=== PATIENT | male | born 1935 | race Caucasian/White ===

== ENCOUNTER 2019-08-20 14:57 | Inpatient (IN) | payer OTHER ==
[~2019-08-20] VITALS: Ht 172.7 cm; Wt 70.3 kg
[~2019-08-20 14:57] MED LIST: PROSCAR 5MG TABL5 MG PO
[2019-08-20 15:05] VITALS: BP 164/83
[2019-08-20 15:41] LABS: URINE BILIRUBIN NEGATIVE (Negative); URINE BLOOD TRACE (Negative); URINE CLARITY CLEAR; URINE COLOR YELLOW; URINE GLUCOSE-RANDOM* NEGATIVE (Negative); URINE KETONES NEGATIVE (Negative); URINE LEUKOCYTES-REFLEX TRACE (Negative); URINE NITRITE-REFLEX NEGATIVE (Negative); URINE PROTEIN (DIPSTICK) NEGATIVE (Negative); URINE SPECIFIC GRAVITY 1.015 (1.005-1.035)
[2019-08-20 15:48] LABS: ABSOLUTE NEUTROPHILS 5.2 thou/uL (1.4-8.2); BASOPHILS 0.5 % (0.0-2.0); HEMATOCRIT 45.1 % (42.0-52.0); HEMOGLOBIN 15.4 gm/dL (14.0-18.0); LYMPHOCYTES 16.7 % (24.0-44.0); MCH 32.5 pg (26.0-34.0); MCHC 34.1 g/dL (28.0-37.0); MCV 95.2 fL (80.0-100.0); PLATELET COUNT 246 thou/uL (150-400); POLYS 74.8 % (36.0-66.0); RBC 4.73 mil/uL (4.50-6.00)
[2019-08-20] MEDS ORDERED: PROBIOTIC1 EAC7 PO (15:51)
[2019-08-20 15:52] LABS: CALCIUM 8.7 mg/dL (8.5-10.1); CREATININE 0.9 mg/dL (0.7-1.3); POTASSIUM 3.9 mmol/L (3.5-5.1)
[2019-08-20] MEDS ORDERED: LORAZEPAM 0.50.5 MG PO (15:52)
[2019-08-20] MEDS ORDERED: MELATONIN3 M1 PO (15:52)
[2019-08-20] MEDS ORDERED: ASA81BEC PO (15:52)
[2019-08-20] MEDS ORDERED: TRAZODONE HCL50 MG PO (15:52)
[2019-08-20 15:57] LABS: ALBUMIN 3.6 g/dL (3.4-5.0); TOTAL BILIRUBIN 0.4 mg/dL (0.2-1.0); TOTAL PROTEIN 7.8 g/dL (6.4-8.2)
[2019-08-20 18:35] VITALS: BP 145/63
[2019-08-20 19:39] VITALS: BP 167/88
[2019-08-20 20:14] VITALS: BP 167/88
--- NOTE | 2019-08-20 23:13 | NUR ---
Arrived on [facility] floor in a Wheel chair accompanied by x1 staff from the ER @ 19:15 and transferred to bed 521B. Able to bear weight and step 2 steps from w/c to bed. VS 167/88 94 18 98.4 100% weight 156 pounds. Full code A&O x2 oriented to person and own birthday. Comes to the [facility] with glasses, x2 hearing aids, hearing aide batteries, clothes inventoried, diet regular. Patient has an enlarged prostate, is continent of bladder, ambulates to the toilet, has not had a bm while at our facility, and reports does not remember when he last had a bm. Ambulates with slow but steady gait with stand by assist x1. Refused a snack.
[2019-08-21 07:30] VITALS: BP 150/70
--- NOTE | 2019-08-21 18:13 | NUR ---
Alert and orientated X4. Denies SI/HI. Some confused speech. Gets lost frequently going to and from room to dining room. One episode of becoming anxious in midafternoon d/t doing same thing over and over. Steady, shuffling gait. Breath sounds clear t/o. Reg HR auscultated. Color pink with brisk capillary refill and palpable peripheral pulses. No edema noted. Independent with voiding. Active bowel sounds over soft, rounded abdomen. Unable to recall last BM. Compliant with meds, independent with eating. Currently in room.
[2019-08-21 19:00] VITALS: BP 156/64
--- NOTE | 2019-08-22 02:13 | NUR ---
Care assumed of patient at 1915: Patient sleeping in bed at start of shift. Patient easily aroused. Patient alert and oriented to person and place. Patient forgetful and confused. Patient presents with flat affect, depressed mood. Patient became tearful when asked about current date and situation. Patient states "I just don't know" and shakes his head side to side. Patient denied pain and discomfort. Patient avoiding eye contact when speaking with nurse. Turns his head to the side and looks at the wall. Patient declined HS snack. Took HS medication whole without difficulty. Patient continent of bladder. Ambulates with shuffled gait. Patient denies SI/HI/AH/VH. Denies anxiety and depression despite appearing depressed. No delusional or paranoia behaviors observed. Patient has been resting quietly in bed most of the shift thus far.
[2019-08-22 07:36] VITALS: BP 113/69
--- NOTE | 2019-08-22 08:55 | NUR ---
DAUGHTER, MS. ISABEL ASTUDILLO, CALLED AND INQUIRED ABOUT THE PT. SHE WAS PROVIDED WITH GENERAL INFORMATION ON THE PT. SHE STATED SHE WILL CHECK UP ON HIM FROM TIME TO TIME. CALL ENDED.
--- NOTE | 2019-08-22 10:21 | NUR ---
Assumed care at 0700. Out for breakfast in dayroom. Denied complaints of pain and issues. Fed himself without difficulty. Oriented to name and year. Is wearing his hearing aids-says batteries are good. Has no questions.
--- NOTE | 2019-08-22 15:55 | NUR ---
Patient became tearful when asked wht brought him to the hospital. He asked why do you keep asking me that question? Question was asked only once by this nurse. After lunch patient returned to his room, secluded himself to his room. He denies hallucinations, SI/HI. Affect is sad with depressed mood.
[2019-08-22 19:18] VITALS: BP 150/77
--- NOTE | 2019-08-22 21:28 | NUR ---
Care assumed of patient at 1915: Patient laying in bed at start of shift. Easily aroused, does not appear to be sleeping. Alert and oriented x4 with some confusion and forgetfulness observed. Patient was able to state that he is in the hospital to get help for his dementia. Is able to state that he has trouble with his memory at times. Denies SI/HI/AH/VH. Denies anxiety and depression. Patient resistant to nursing assessment intitially and became tearful. Education provided on importance of nursing assessments. Patient stated he understood that staff was doing their job. Patient denied pain and discomfort. Patient presents with flat affect, depressed mood. Patient took HS medication whole without difficulty. Patient declined HS snack. Patient has remained withdrawn to his room thus far this shift. Patient resting quietly in bed at this time.
[2019-08-23 07:38] VITALS: BP 148/75
--- NOTE | 2019-08-23 08:27 | EKG ---
[facility] [place] [address] ELECTROCARDIOGRAM REPORT Name: RICKI MOSS Room #: [facility] ADM IN M.R.#: [id number] Admission: 08/20/19 Attend Phys: Darren Tyson DO Discharge: Date of : 31 Report #: [id number] THIS REPORT FOR: cc: Kitty Bustillo MD, Michelle R. MD Lundgren,Heath Chin MD [facility] ~ THIS REPORT FOR: //name// [facility] ED Test Date: 2019-08-20 Test Time: 15:53:09 Pat Name: RICKI MOSS Department: Room: [facility] Gender: M Medical Accounting Clerk: SUSAN : 1935 Requested By: Pratik Jaquez Order Number: [id number] MD: Heath Lux Measurements Intervals [place] Rate: 77 P: 11 MT: 205 QRS: 33 QRSD: 93 T: 84 QT: 380 QTc: 431 Interpretive Statements Sinus rhythm Normal tracing No previous ECG available for comparison Electronically Signed On 08-23-2019 8:25:12 CDT by Heath Lux [email or web address] <ELECTRONICALLY SIGNED> By: Heath Lux MD, [facility] 08/23/19 0825 1553 1553 Haeth Lux MD, [facility] /EPI
--- NOTE | 2019-08-23 08:27 | EKG ---
[facility] [place] [address] ELECTROCARDIOGRAM REPORT Name: RICKI MOSS Room #: [facility] [place] ADM IN M.R.#: [id number] Admission: 08/20/19 Attend Phys: Darren Tyson DO Discharge: Date of : 31 Report #: [id number] THIS REPORT FOR: cc: Kitty Bustillo MD, Michelle R. MD Lundgren,Heath Chin MD [facility] ~ THIS REPORT FOR: //name// [facility] ED Test Date: 2019-08-20 Test Time: 15:25:42 Pat Name: RICKI MOSS Department: Room: [facility] Gender: M Canteen Manager: SUSAN : 1935 Requested By: Pratik Jaquez Order Number: [id number] MD: Heath Lux Measurements Intervals [place] Rate: 87 P: OR: QRS: -7 QRSD: 104 T: 31 QT: 355 QTc: 427 Interpretive Statements Atrial fibrillation Inferior infarct, old Baseline wander in lead(s) V3 No previous ECG available for comparison Electronically Signed On 08-23-2019 8:25:01 CDT by Heath Lux [email or web address] <ELECTRONICALLY SIGNED> By: Heath Lux MD, [facility] 08/23/19 0825 1525 1525 Heath Lux MD, [facility] /EPI
--- NOTE | 2019-08-23 13:25 | NUR ---
Assess due to high nutrition screening risk. Admit to [facility] with dementia. Visit with pt in room. States he had good lunch today and "ate the hamburger". Does not have any complaints about appetite and stated he is not sure how much he usually weighs. BMI healthy 23.6. Intake other meals 50-100%. Voiced no specific food preferences. Presents well nourished. Low nutrition risk
--- NOTE | 2019-08-23 19:21 | NUR ---
Care of patient assumed at 1915. Patient is laying in bed. Pleasant and cooperative with assessment. Reports that he know he has short term memory issues, and that he tends to repeat himself several times before remembering that he has said that before. A/O x 4. Denies pain. Denies depression. Dneies anxiety. HS, LS, BS all wNL. Per shift report, patient has been laying in bed all day and will only wiggle his toes when told he needs to be active to stay healthy. This nurse spoke with patient about exercises to maintain muscle tone. After assessment, patient ambulates in the major per self. Compliant with HS meds. Sleeping shortly after.
[2019-08-23 19:33] VITALS: BP 144/73
--- NOTE | 2019-08-23 23:31 | H ---
[facility] [place] [address] HISTORY AND PHYSICAL Name: RICKI MOSS Room #: 521B-B ADM IN M.R.#: [id number] Admission: 08/20/19 Attend Phys: Darren Tyson DO Discharge: Date of : 31 Report #: [id number] THIS REPORT FOR: cc: Kitty Bustillo MD,Darren Joseph MD, DO ~ CC: Darren Bustillo DATE OF SERVICE: 08/21/2019 INPATIENT PSYCHIATRIC EVALUATION ATTENDING PHYSICIAN: Darren Tyson D.O. VISCOSE CELLAR WORKER: Shawanda Aguilar M.D. REASON FOR ADMISSION: Visual hallucinations. CHIEF COMPLAINT: "having rewind". HISTORY OF PRESENT ILLNESS: This is an 83-year-old male living with his daughter, Tess, as well as a grandchild and great grandchildren. The patient reports a 6-week history of problems relating to cognition, but seeing multiple images, recurrent. His description of visual hallucinations is somewhat atypical. He denied auditory or tactile hallucinations. Over the last several weeks, the patient has been emotionally labile, difficulty sleeping and caring for himself, 6 weeks ago when things began and was evaluated. He had imaging there including CT, MRI/MRA. Around 07/22/2019 at [facility], he had a lumbar puncture. Verbally this was reported as grossly negative. We only have the head scans and noninvasive radiology from the neuro, actually do not have the results from the LP. Apparently saw a neurologist, which was unable to identify a cause, I am not sure if this is an inpatient or outpatient. He continues to have difficulty sleeping and will wake about every 2 hours during the night. Several weeks back, he began having The patient is having visual hallucinations with resultant him scared to be alone including using the bathroom and during other routine hygiene activities. Daughter states that the patient has not taken a shower in about a month and has not been brushing his teeth as he should. He was evaluated by PCP 3 days ago who recommended psychiatric evaluation. They attempted to arrange outpatient evaluation but were unsuccessful. He denied auditory hallucination. Denied SI or HI, memory difficulty. [facility] [address] [place] [address] HISTORY AND PHYSICAL Name: RICKI MOSS Room #: 521B-B ADM IN M.R.#: [id number] Admission: 08/20/19 Attend Phys: Darren Tyson DO Discharge: Date of : 31 Report #: [id number] PAST MEDICAL HISTORY: Enlarged prostate. HOME MEDICATIONS: Finasteride, bacillus, melatonin, aspirin, trazodone, 1 mg of lorazepam at bedtime. ALLERGIES: No known allergies. SOCIAL HISTORY: Denied alcohol, smoking or recreational drug use. REVIEW OF SYSTEMS: From the ER, CONSTITUTIONAL: Denies fever, chills, malaise, unexplained weight change. EYES: Denies eye pain, visual change or discharge. HENT: Denies hearing changes, ear drainage, ear infections, ear pain, neck pain or neck stiffness. RESPIRATORY: Denies cough, shortness of breath, hemoptysis, respiratory distress. CARDIOVASCULAR: Denies chest pain, chest pain with exertion or edema. GASTROINTESTINAL: Denies abdominal pain, nausea, vomiting or diarrhea. GENITOURINARY: Denies burning, frequency or dysuria. MUSCULOSKELETAL: Denies back pain, joint pain, muscle weakness or myalgias. SKIN: Denies rash. NEUROLOGIC: Denies weakness, headache or loss of consciousness. PSYCHIATRIC: Denies auditory hallucinations or SI or HI. Otherwise, 10-point review of systems negative. Weight 72.58 kg, BMI 23.7. LABORATORY DATA: Additional information, laboratories in the ER, hematology. CBC: White count 7.0, H and H 15.0 and 45.1, platelet count 246. Coags were canceled. Chemistry: Sodium 136, potassium 3.9, chloride 102, bicarbonate 29, anion gap 5, BUN 12, creatinine 0.9, estimated GFR 80, glucose 103, calcium 8.7, total bilirubin 0.4, AST 13, ALT 12, alkaline phosphatase 72, total protein 7.8, albumin 3.6. Vitamin B12 1349, folate pending. TSH 1.190. We will go ahead and add syphilis antibody and vitamin D into those labs. Urinalysis showed trace blood. Neuro imaging reviewed from [facility]. MRA showed normal variations to the intracranial vasculature with no evidence of aneurysm, flow limiting stenosis or large vessel cutoff. MRI of the brain showed no evidence of acute intracranial hemorrhage, infarct, mass effect. Duplex carotid bilateral ultrasound showed evidence of atherosclerotic disease without hemodynamically significant stenosis. Head CT done on 07/08/2019 showed no acute intracranial abnormality. Chest x-ray done back on July 07 showed a medial right basilar airspace opacity, possible atelectasis. Echocardiogram was done, which showed left ventricular EF 60-65%, structurally normal valves. There was grade 1 diastolic dysfunction noted. Tricuspid valve, pulmonary artery pressure, cannot be obtained due to inadequate tricuspid regurgitation jet envelope. No [facility] [address] [place] [address] HISTORY AND PHYSICAL Name: RICKI MOSS Room #: 521B-B ADM IN M.Bhupendra.#: [id number] Admission: 08/20/19 Attend Phys: Darren Tyson, DO Discharge: Date of : 31 Report #: [id number] pericardial effusion. I would not review all the routine blood work as it has been grossly normal and EKG back on July 11 showed QTC 432, normal sinus rhythm and old inferior infarct. Diagnosis from [facility] was confusion with nonfocal neuro exam, hematuria, hypertension. . PHYSICAL EXAMINATION: VITAL SIGNS: Today, temperature 36.5, pulse 101, respirations 17, BP 150/70, O2 sat 99%. MUSCULOSKELETAL: He is ambulatory. He has a very rigid narrow gait suggestive of parkinsonism. MENTAL STATUS EXAMINATION: This is a well-developed, age appearing male. Attention limited. Concentration limited. Speech is normal rate. Thought process is linear and goal directed. Thought content, relative poverty of thought. No psychomotor agitation, no sudden retardation. Denied SI or HI. Denied auditory, visual, or tactile hallucinations. Memory grossly impaired. All details provided on below SLUMS. Insight limited. Judgment limited. Fund of knowledge below average. [facility] Mental Status exam was performed. The patient scored 11/30. He was 0/3 on the money management question, 0/3 on verbal fluency, 2/5 on 5-item recall, 0/2 on reverse digit span, he only did correctly 2 digits not 3 or 4, 0/4 on clock drawing, 2/2 on visual spatial recognition and 4/8 on the cued memory. I spoke with his daughter at some length, it sounds like this has been marked event for the last 6 weeks or so. The patient is adopted, so do not have a good family history. EDUCATIONAL HISTORY: He has a bachelor's degree in engineering, worked in municipal career. He has 2 adult daughters. His in 1998. No alcohol, tobacco, or recreational drug use history. FORMULATION: An 83-year-old male with 6-week history of disrupted sleep, labile mood, visual hallucinations. DIAGNOSIS: At this time unspecified psychosis. Parkinson symptoms, cannot exclude idiopathic Parkinson's disease, rule out Lewy body dementia with parkinsonian features. PLAN: Evaluate, stabilize, obtain collateral. Started him on Seroquel XR 150 mg last night. We will increase that to 200 mg XR. He is on lactobacillus daily, finasteride 5 mg daily, B12 1000 mcg daily, aspirin daily, lorazepam 0.5 mg p.r.n. at 2200, melatonin 5 mg at bedtime. Given his degree of dementia, we will go ahead and discontinue the lorazepam, add in orders for vitamin D level, syphilis antibody. [address] [address] HISTORY AND PHYSICAL Name: RICKI MOSS Room #: 521B-B ADM IN M.R.#: [id number] Admission: 08/20/19 Attend Phys: Darren Tyson, Discharge: Date of : 31 Report #: [id number] Time spent on interview, review of records, coordination of care and SLUMS exam was well over 60 minutes. STRENGTHS: He is insured, supportive family. WEAKNESSES: Marked cognitive decline, concern for Lewy body dementia. <ELECTRONICALLY SIGNED> By: Darren Tyson DO 08/23/19 2331 1503 1544 Darren Tyson, /nt
[2019-08-24 07:41] VITALS: BP 161/78
--- NOTE | 2019-08-24 16:00 | NUR ---
Up ambulating with slow, steady gait. Alert and orientated X4. Denies SI/HI. Having difficulty hearing, batteries changed in hearing aides. Needs redirection getting to/from room. Calm and compliant with meds. Breath sounds clear t/o. Reg HR auscultated. Color pink with brisk capillary refill and palpable peripheral pulses. Independent with voiding. Active bowel sounds over soft, rounded abdomen. Sits in day room with peers. No s/o distress.
[2019-08-24 19:33] VITALS: BP 139/74
[2019-08-24 20:07] LABS: SYPHILIS AB Non Reactive (Non Reactive)
--- NOTE | 2019-08-24 20:12 | NUR ---
ASSUMED CARE ON 08/24/19 @ 19:15, IN BED EYES OPEN, RESPONDS WHEN SPOKEN TO AND COOPERATED WITH ASSESSMENT. HRRR NOTED, LUNGS CTA, ABD N BOWEL SOUNDS, DENIES HAVING A BM TODAY, DENIES HAVING A BM SINCE HE CAME TO THE HOSPITAL. DENIES HAVING A SHOWER SINCE ADMISSION. DENIES SI, HI, AH, VH. A&OX4.
[2019-08-25 02:31] VITALS: BP 139/74
[2019-08-25 07:40] VITALS: BP 119/78
--- NOTE | 2019-08-25 13:34 | H ---
[facility] [place] [address] HISTORY AND PHYSICAL Name: RICKI MOSS Room #: 521B-B ADM IN M.R.#: [id number] Admission: 08/20/19 Attend Phys: Darren Tyson DO Discharge: Date of : 31 Report #: [id number] THIS REPORT FOR: cc: Kitty Bustillo MD,Darren Joseph MD, DO ~ CC: Darren Bustillo DATE OF SERVICE: 08/20/2019 CONTINUATION The patient is having visual hallucinations with resultant him scared to be alone including using the bathroom and during other routine hygiene activities. Daughter states that the patient has not taken a shower in about a month and has not been brushing his teeth as he should. He was evaluated by PCP 3 days ago who recommended psychiatric evaluation. They attempted to arrange outpatient evaluation but were unsuccessful. He denied auditory hallucination. Denied SI or HI, memory difficulty. PAST MEDICAL HISTORY: Enlarged prostate. HOME MEDICATIONS: Finasteride, bacillus, melatonin, aspirin, trazodone, 1 mg of lorazepam at bedtime. ALLERGIES: No known allergies. SOCIAL HISTORY: Denied alcohol or recreational drug use. REVIEW OF SYSTEMS: From the ER, CONSTITUTIONAL: Denies fever, chills, malaise, unexplained weight change. EYES: Denies eye pain, visual change or discharge. HENT: Denies hearing changes, ear drainage, ear infections, ear pain, neck pain or neck stiffness. RESPIRATORY: Denies cough, shortness of breath, hemoptysis, respiratory distress. CARDIOVASCULAR: Denies chest pain, chest pain with exertion or edema. GASTROINTESTINAL: Denies abdominal pain, nausea, vomiting or diarrhea. GENITOURINARY: Denies burning, frequency or dysuria. MUSCULOSKELETAL: Denies back pain, joint pain, muscle weakness or myalgias. SKIN: Denies rash. NEUROLOGIC: Denies weakness, headache or loss of consciousness. PSYCHIATRIC: Denies auditory hallucinations or SI or HI. Otherwise, 10-point review of systems negative. [facility] [address] [place] [address] HISTORY AND PHYSICAL Name: RICKI MOSS Room #: 521B-B ADM IN M.R.#: [id number] Admission: 08/20/19 Attend Phys: Darren Tyson DO Discharge: Date of : 33 Report #: [id number] Weight 72.58 kg, BMI 23.7. LABORATORY DATA: Additional information, laboratories in the ER, hematology. CBC: White count 7.0, H and H 15.0 and 45.1, platelet count 246. Coags were canceled. Chemistry: Sodium 136, potassium 3.9, chloride 102, bicarbonate 29, anion gap 5, BUN 12, creatinine 0.9, estimated GFR 80, glucose 103, calcium 8.7, total bilirubin 0.4, AST 13, ALT 12, alkaline phosphatase 72, total protein 7.8, albumin 3.6. Vitamin B12 1349, folate pending. TSH 1.190. We will go ahead and add syphilis antibody and vitamin D into those labs. Urinalysis showed trace blood. Neuro imaging reviewed from [facility]. MRA showed normal variations to the intracranial vasculature with no evidence of aneurysm, flow limiting stenosis or large vessel cutoff. MRI of the brain showed no evidence of acute intracranial hemorrhage, infarct, mass effect. Duplex carotid bilateral ultrasound showed evidence of atherosclerotic disease without hemodynamically significant stenosis. Head CT done on 07/08/2019 showed no acute intracranial abnormality. Chest x-ray done back on July 07 showed a medial right basilar airspace opacity, possible atelectasis. Echocardiogram was done, which showed left ventricular EF 60-65%, structurally normal valves. There was grade 1 diastolic dysfunction noted. Tricuspid valve, pulmonary artery pressure, cannot be obtained due to inadequate tricuspid regurgitation jet envelope. No pericardial effusion. I would not review all the routine blood work as it has been grossly normal and EKG back on July 11 showed , QTC 432, normal sinus rhythm and old inferior infarct. Diagnosis from [facility] was confusion with nonfocal neuro exam, hematuria, hypertension, MD as well as the hospitalist involved which looks like. PHYSICAL EXAMINATION: VITAL SIGNS: Today, temperature 36.5, pulse 101, respirations 17, BP 150/70, O2 sat 99%. MUSCULOSKELETAL: He is ambulatory. He has a very rigid narrow gait suggestive of parkinsonism. MENTAL STATUS EXAMINATION: This is a well-developed, age appearing male. Attention limited. Concentration limited. Speech is normal rate. Thought process is linear and goal directed. Thought content, relative poverty of thought. No psychomotor agitation, no sudden retardation. Denied SI or HI. Denied auditory, visual, or tactile hallucinations. Memory grossly impaired. All details provided 02/13 SLUMS. Insight limited. Judgment limited. Fund of knowledge below average. [facility] Mental Status exam was performed. The patient scored 11/30. He was 0/3 on the money management question, 0/3 on verbal fluency, 2/5 on 5-item recall, 0/2 on reverse digit span, he only did correctly 2 digits not 3 or 4, 0/4 on clock drawing, 2/2 on visual spatial recognition and 4/8 on the cued memory. I spoke with his daughter at some length, it sounds like this has been marked event for the last 6 weeks or so. The patient is adopted, so do not have a good family history. 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 He has 2 adult daughters. His in 1998. No alcohol, tobacco, or recreational drug use history. FORMULATION: An 83-year-old male with 6-week history of disrupted sleep, labile mood, visual hallucinations. DIAGNOSIS: At this time unspecified psychosis. Parkinson symptoms, cannot exclude idiopathic Parkinson's disease, rule out Lewy body dementia with parkinsonian features. PLAN: Evaluate, stabilize, obtain collateral. Started him on Seroquel XR 150 mg last night. We will increase that to 200 mg XR. He is on lactobacillus daily, finasteride 5 mg daily, B12 1000 mcg daily, aspirin daily, lorazepam 0.5 mg p.r.n. at 2200, melatonin 5 mg at bedtime. Given his degree of dementia, we will go ahead and discontinue the lorazepam, add in orders for vitamin D level, syphilis antibody. Time spent on interview, review of records, coordination of care and SLUMS exam was well over 60 minutes. STRENGTHS: He is insured, supportive family. WEAKNESSES: Marked cognitive decline, concern for Lewy body dementia. <ELECTRONICALLY SIGNED> By: Darren Tyson DO 08/25/19 1334 1522 1632 Darren Tyson DO /nt
--- NOTE | 2019-08-25 14:02 | NUR ---
SW set up a fmaily meeting for 2pm with Dr stauffer.
--- NOTE | 2019-08-25 14:47 | NUR ---
JADEN and Dr Tyson met for tele conference with pt's dghts. Dr tyson provided an update and discussed d/c plans. Family agrees that pt needs placement. Sw requested that they look into his finances and consider memory care [place]> JADEN provided names of soome communities to choose from in [place] and [place]. Family is willing to call and start the process. JADEN will send referrals.
--- NOTE | 2019-08-25 15:52 | NUR ---
Patient vague about visions yet denies visual hallucinations. Denies SI/HI/AH. Says he wants stool softener. On his own initiative he was walking in the halls and sitting in the dayroom watching TV. says his mood is OK. He was anticipating discharge today.
--- NOTE | 2019-08-25 16:38 | NUR ---
JADEN spke with pt's dght and it was decided that this pt will need Medicaid LTC with memory care. JADEN intiated the referral with [employer] for the [employer] application and will send referrals in the AM
[2019-08-25 20:55] VITALS: BP 112/60
--- NOTE | 2019-08-25 23:56 | NUR ---
Assumed care on 08/25/19 @ 1915, lying in bed, awake, responds to voice and A&O x 2 to person and time. Thinks is going home tomorrow, denies pain, denies anxiety and depression. denies SI/HI/AH and VH. Reports that he is learning that the medicine helps chcf and that he is learning to not let his "Buttons get triggered", and that "I can prevent getting agrivated that it happened". Denies having a BM today, agreed to drink a glass of prune juice. Patient has no stool softener ordered at this time, and would like to have a stool softener. Cooperated with assessment, HRRR, Lungs CTA bilat, ABD Normoactive bowel sounds noted. In bed at this writing, eyes closed, respirations even and unlabored. Bed in low position with bed alarm set. Will continue to monitor q 12 minutes for patient safety.
[2019-08-26 02:21] VITALS: BP 112/60
[2019-08-26 07:15] VITALS: BP 134/78
--- NOTE | 2019-08-26 12:00 | NUR ---
RT Progress Note- Steven's participation was very minimal for much of this review period, though he is now present in the milieu for much of the day as of the last 2 days. He expresses a positive outlook to his situation and explains new coping skills he has developed. He has now participated in each group he is encouraged to attend.
--- NOTE | 2019-08-26 12:14 | NUR ---
JADEN sent referrals for memory care,LTC and with medicaid pending to [facility] , [facility].
--- NOTE | 2019-08-26 12:29 | NUR ---
SW spoke with pt's dght Serge Staples and she stated that her sister Jeannette is unemployed and lives in the pt's home and his income pays for everything. They want to stop the medicaid application and seek alternate fundign for LTC. SW will see if this pt has any skillable ctriteria for SNF at d/c.
--- NOTE | 2019-08-26 15:52 | NUR ---
Juan Manuel met with pt and Dr stauffer and went over the results of the neuropsych testing. Pt would like to go home , and family will provide 24 hour supevision. JUAN MANUEL then called and spoke with Jeannette, and it was discussed that for the next few months pt would be at home and then they will sell the home and pt can have PD or go to adult day care for extra socialization. Juan Manuel tried to call Serge Staples but it rang with no VM. Pt was denied at [facility] for now. JUAN MANUEL then spoke with Serge Staples and encouraged [facility] services for support to age in place. JUAN MANUEL provided family with the phone number and what kind of case mangement for this pt. It can be a combination of adult day care and [facility], nursing care.
--- NOTE | 2019-08-26 16:09 | NUR ---
Up ambulating with slow, shuffling, steady gait. Alert and orientated X3. Compliant with meds. Participating in groups today. Denies SI/HI. Breath sounds clear t/o. Reg HR auscultated. Color pink with brisk capillary refill and palpable peripheral pulses. Independent with voiding. Active bowel sounds over soft, rounded abdomen. Senna/Docusate started d/t LBM 08/23.
[2019-08-26 19:30] VITALS: BP 134/70
[2019-08-26 20:00] VITALS: BP 134/70
--- NOTE | 2019-08-26 23:42 | NUR ---
Assumed care of patient this pm shift. Patient lying in bed at start of shift. Patient appears to be in good spirits. Patient is med adherent. Patient takes medications whole with water. Patient alert and oriented to self, place, and time. Patient denies pain. Patient denies hi/si. Patient calm and cooperative. Patients assessment shows clear breath sounds, active bowel sounds, and s1 s2 heard with auscultation. Patient has a normal affect. We will continue to monitor per hospital protocol.
[2019-08-27 08:35] VITALS: BP 127/76
--- NOTE | 2019-08-27 10:29 | NUR ---
PATIENT CARE ASSUMED AT 0700 - PATIENT CALM AND QUIET. PATIENT EXPLAINED VERY HARD OF HEARING. ASSISTED WITH BATTERY CHANGE. PATIENT STATED MEMORY POOR - SO EXCUSE HIM IF HE FORGETS STAFF NAME. PATIENT COMPLIANT WITH MEDICATIONS. HAD GOOD SLEEP. - MENTIONED MIGHT BE RELOCATING TO NEW FACILITY BUT UNCERTAIN WHERE. STATED ACTUALLY LOOKING FORWARD TO CHANGE. PATIENT SPENT MOST OF FLUE CLEANER WATCHING TV. ASSESSED STATED NO PAIN DISCOMFORT, LUNGS CLEAR AND HEART STRONG AND STEADY. PATIENT AMBULATES INDEPENDENTLY. MONITOR FOR UNSTEADINESS AFTER MEDICATION PASSES.
[2019-08-27 19:42] VITALS: BP 132/69
[2019-08-27 22:00] VITALS: BP 132/69
--- NOTE | 2019-08-28 02:28 | NUR ---
Assumed care of patient this pm shift. Patient laying down in bedroom. Patient in good spirits, calm and cooperative. Patient denies pain. Patient denies hi/si. Patient alert and oriented x3. Patient med adherent, takes medications whole with thin fluids. Patients assessment shows clear breath sounds, active bowel sounds, and s1 s2 heard with auscultation. Patients affect appears normal. We will continue to monitor per hospital protocol.
[2019-08-28 08:20] VITALS: BP 152/81
[2019-08-28 09:18] VITALS: BP 192/81
--- NOTE | 2019-08-28 10:09 | NUR ---
1000 RESUMMED CARE FROM OVERNIGHT SHIFT THIS AM, PATIENT QUIET COOPERATIVE ORIENTED TIMES 4. PATIENTS ABDOMEN SEMI SOFT BOWEL SOUNDS PRESENT LUNGS CLEAR. PATIENT DENIES SI/HI/AH/VH AT PRESENT, PATIENT COOPERATIVE QUIET PATIENT DID PARTICIPATE IN GROUPS. PATIENT RECIEVED A SHOWER THIS MORNING WILL CONTINUE TO MONITOR FOR SAFETY AND BEHAVIORS.
[2019-08-28 20:13] VITALS: BP 128/67
--- NOTE | 2019-08-29 03:06 | NUR ---
08-28-19 CARE TRANSFERED 1914 PT SUPINE IN BED WITH EYES CLOSED. 1934 PT SUPINE IN BED RESTING WITH EYES CLOSED EASILY AROUSED TO VOICE. PT AAOX2, CALM AND COOPERATIVE THROUGHOUT NURSING ASSESSMENT. PT DOES NOT APPEAR TO BE IN ANY ACUTE EMOTIONAL DISTRESS AT PRESENT TIME. PT DENIES ANY PAIN OR SI/SH/HI/VAH. PT HAD ZERO DIFFCULTIES DURING MEDICATION ADMIN. DURING THIS TIME PT REPORTED HE HAS NOT HAD A BM, NOTED DURING NURSING ASSESSMENT PT WAS HYPOACTIVE IN ALL FOUR QUADS. PT MAR REVIEWED AND NOTED PT HAS A STOOL SOFTNER AVAILABLE AT 0900. ZERO ACUTE DISTRESS NOTED. WILL CONTINUE TO MONITOR PER [facility] PROTOCOL.
[2019-08-29 08:50] VITALS: BP 146/86
[2019-08-29] MEDS ORDERED: VITAMIN B-12500 MCG PO (11:29)
[2019-08-29] MEDS ORDERED: SENNA-TIME S T1 EACH PO (11:29)
[2019-08-29] MEDS ORDERED: MILK OF MA2400 MG/11 PO (11:29)
[2019-08-29] MEDS ORDERED: NAMENDA 5 MG TAB5 M1 PO ×3 (11:29)
[2019-08-29] MEDS ORDERED: ZOFRAN4 MG PO (11:29)
[2019-08-29] MEDS ORDERED: MAG-AL PLUS SUS30 ML PO (11:29)
[2019-08-29] MEDS ORDERED: CEPACOL SORE T1 EAC7 PO (11:29)
[2019-08-29] MEDS ORDERED: EXTRA STRENGTH85 GM TOP (11:29)
[2019-08-29] MEDS ORDERED: BAYER CHEWABLE81 MG PO (11:29)
[2019-08-29] MEDS ORDERED: VITAMIN D325 MCG PO (11:29)
[2019-08-29] MEDS ORDERED: AMLODIPINE BESY10 MG PO (11:29)
[2019-08-29] MEDS ORDERED: ACIDOPHILUS1 EAC4 PO (11:29)
[2019-08-29] MEDS ORDERED: SEROQUEL XR 20200 MG PO (11:29)
[2019-08-29] MEDS ORDERED: ACETAMINOPHEN325 M1 PO (11:29)
[2019-08-29] MEDS ORDERED: MELATONIN5 M1 PO (11:30)
[2019-08-29] MEDS ORDERED: TRAZODONE HCL50 MG PO (11:30)
[2019-08-29] MEDS ORDERED: FINASTERIDE5 MG PO (11:30)
[2019-08-29 12:01] VITALS: BP 146/86
--- NOTE | 2019-08-29 13:47 | NUR ---
DISCHARGE INSTRUCTIONS REVIEWED WITH PT INCLUDING F/U RECOMMENDATIONS-WHEN TO SEEK EMERGENCEY HELP AND MEDICATIONS DOSES,TIMES,INDICATIONS. RX CALLED TO [facility] PER AUTOMOBILE TECHNICIAN. PT DENIES QUESTIONS/CONCERNS AT TIME OF DC. DENIES SI/SH/HI. ALERT,COOPERATIVE AND EXPRESSING APPRECIATION OF SERVICES PROVIDED. DENIES C/O OF PAIN AT TIME OF DC. PERSONAL BELONGINGS ON UNIT SECURED AND RETRIEVED FRO SECURITY SENT WITH PT.ACCOMPNIED BY NURSING STAFF VIA WC TO ER ENTRANCE AND DAUGHTER. DC PAPERWORK PACKET GIVEN TO DAUGHTER AT TIME OF DC
--- NOTE | 2019-08-30 11:52 | NUR ---
JUAN MANUEL emailed pt's dght and provided her wiht the phone number for Dr Sahu and a f/u appt on 09/12 at 1PM. Juan Manuel also asked her to set upo an appt with the PCP Dr Bustillo whom she provided infomration about Friday PM via email.
--- NOTE | 2019-09-01 00:52 | D ---
[facility] [place] [address] [place] [address] DISCHARGE SUMMARY Name: RICKI MOSS Room #: 521B-B DIS IN M.R.#: [id number] Admission: 08/20/19 Attend Phys: Darren Tyson DO Discharge: 08/29/19 Date of : 31 Report #: [id number] THIS REPORT FOR: cc: Kitty Bustillo MD, Michelle R. MD Kerstein, Andrew H. DO ~ THIS REPORT FOR: //name// CC: Darren Bustillo DATE OF SERVICE: 08/29/2019 INPATIENT PSYCHIATRIC DISCHARGE SUMMARY ATTENDING PHYSICIAN: Darren Tyson DO BAROMETERS CALIBRATOR AT TIME OF DISCHARGE: Hazel Leal MD SPLICING MACHINE OPERATOR THIS ADMISSION: Dilip Morales, Ph.D. neuropsychologist, diagnosed with major neurocognitive disorder of Alzheimer's type, moderate degree. DISCHARGE DIAGNOSES: Includes unspecified psychosis, resolved; major neurocognitive disorder, possibly of Alzheimer's etiology, moderate degree; concern for idiopathic Parkinson's disease. MEDICAL DIAGNOSES: Include benign prostatic hypertrophy, hyperlipidemia, hypertension, microscopic hematuria. DISPOSITION: Discharging to his daughter, Tess's home. DISCHARGE DIET: As follows, regular diet. ACTIVITY LEVEL: As tolerated. The patient does require 24/7 assistance and supervision. DISCHARGE MEDICATIONS: Probiotic tablet oral daily. He can take 0.5 mg of lorazepam at bedtime for sleep if needed, but would prefer trazodone 50 mg at sleep. Other medications are amlodipine besylate 10 mg oral daily for hypertension, aspirin 81 mg p.o. daily for heart protection, Seroquel XR 200 mg p.o. at bedtime for psychosis. He was started on Namenda, titration, should be around 5 mg twice a day now for 1 week, then 5 mg in morning, 10 mg in the evening for the week after that, then 10 mg twice a day, recommending senna-S 2 tablets oral daily for bowel motility . Also, vitamin B12 500 mcg oral daily, finasteride [facility] [address] [place] [address] DISCHARGE SUMMARY Name: RICKI MOSS Room #: 52-[facility] IN M.R.#: [id number] Admission: 08/20/19 Attend Phys: Darren Tyson DO Discharge: 08/29/19 Date of : 31 Report #: [id number] 5 mg oral daily for BPH, cholecalciferol 2000 International Units daily. DISCHARGE PLAN: Aftercare is arranged by the manager social responsibility. He should see his primary care physician within 30 days. I have recommended that he have an outpatient psychiatrist. I do not see an appointment listed. They can certainly see Dr. [place] aShu at [facility]. Her clinic could be reached at [phone]. LABORATORY DATA: From this admission, hematology on 08/20/2019 was within normal limits. White count 7.0, H and H 15.4 and 45.1, platelet count 246. Chemistry was within normal limits. B12 level 1349. Vitamin D slightly low at 29, folate 31.5. TSH normal at 1.190. Sodium 136, potassium 3.9, chloride 102, bicarb 29, calcium 8.7. Urinalysis showed trace blood. Syphilis serology was nonreactive. REASON FOR ADMISSION: Back on 08/20/2019 is as follows. An 83-year-old male, brought by his daughter, lives with his daughter. For the last several weeks, the patient has been emotionally labile, difficulty sleeping and caring for himself. In late June or early July, the patient had a large neurological workup at [facility], lumbar puncture at [facility]. Results of all that MRI, MRA, LP was unremarkable. Apparently, the patient had been having hallucinations over the last month. They have been visual in nature. He describes them as everyone, people coming out at him and seen scared. He also reported being scared to be alone, to use bathroom and doing other routine hygiene. Also, avoiding taking a shower or brushing his teeth. His PCP recommended psychiatric admission. HOSPITAL COURSE: The patient was admitted to Geriatric Psychiatry Unit. He was initially started on Seroquel XR 150 mg and was titrated to 200 mg. Neuropsychological testing was done with diagnosis of dementia. Given the fact his SLUMS was 11/30 and BMI is in the 23 range, I elected to go with just memantine, so he was started on Namenda titration, which we will need to complete at home with help of his daughter. We had a telephonic family meeting to discuss the options including placement versus home with family. Family was concerned if the patient was placed with several generations that were living in one house, so that would jeopardize the welfare of many, so the daughter who seemed very reliable was elected to do care at home. I have advised her that the patient will likely to continue to decline and long-term care placement should be sought in the next few months. CONDITION AT DISCHARGE: Stable. My colleague, Stepan Villarreal, was present this weekend for discharge and completed a mental status exam on this discharge note. VITAL SIGNS: On the day of discharge noted to be a temp 36.8, pulse 96, respirations 18, BP 146/86, O2 sat 96%. [address] [place] [address] DISCHARGE SUMMARY Name: RICKI MOSS Room #: 521B-B DIS IN M.R.#: [id number] Admission: 08/20/19 Attend Phys: Darren Tyson DO Discharge: 08/29/19 Date of : 31 Report #: [id number] PROGNOSIS: For this patient is guarded given age of 83, having a major neurocognitive disorder, several medical comorbidities. <ELECTRONICALLY SIGNED> By: Darren Tyson DO 09/01/1953 01 Darren Tyson DO /nt
== END 2019-08-29 13:30 | disposition home or self-care (01) | DRG 57 ==
LOC: ER 14:57 → EROBS 18:15 → SBH 18:15
PROVIDERS: Physician Assistant; ADMIT Psychiatry & Neurology Psychiatry; ATTEND Psychiatry & Neurology Psychiatry
DX: G30.9 Alzheimer's disease, unspecified (principal); F02.80 Dementia in other diseases classified elsewhere, unspecified severity, without behavioral disturbance, psychotic disturbance, mood disturbance, and anxiety; F29 Unspecified psychosis not due to a substance or known physiological condition; G20 Parkinson's disease; G47.00 Insomnia, unspecified; F01.50 Vascular dementia, unspecified severity, without behavioral disturbance, psychotic disturbance, mood disturbance, and anxiety; N40.0 Benign prostatic hyperplasia without lower urinary tract symptoms; E78.5 Hyperlipidemia, unspecified; I10 Essential (primary) hypertension; F32.9 Major depressive disorder, single episode, unspecified; R31.9 Hematuria, unspecified; Z79.899 Other long term (current) drug therapy; Z79.82 Long term (current) use of aspirin
CPT/HCPCS: 10880